=== PATIENT | male | born 1960 | race Two or more races ===

== ENCOUNTER → 2019-09-29 | Emergency (ER) | payer SELFPAY ==
[~2019-09-29] MED LIST: CALCIUM CHLOR(10%) 100MG/ML 10ML SYRINGE IV ONE; EPINEPHrine HCL 1 MG/10 ML SYRG IV ONE; SODIUM BICARBONATE 8.4% INJ 50ML SYRINGE IV ONE
[2019-09-29 16:57] VITALS: BP 0/0
== END | disposition expired ==
LOC: EDBD 16:47 → ER 16:47
DX: I46.9 Cardiac arrest, cause unspecified (principal); J44.9 Chronic obstructive pulmonary disease, unspecified; J96.90 Respiratory failure, unspecified, unspecified whether with hypoxia or hypercapnia
CPT/HCPCS: 92950; 99291; J0171